=== PATIENT | male | born 1995 | race Two or more races ===

== ENCOUNTER 2022-12-09 06:45 | Emergency (ER) | payer OTHER ==
[~2022-12-09] VITALS: Ht 175.3 cm; Wt 64.9 kg
== END 2022-12-09 07:41 | disposition home or self-care (01) ==
LOC: ER 06:45
DX: J06.9 Acute upper respiratory infection, unspecified (principal)

== ENCOUNTER 2023-02-22 00:32 | Emergency (ER) | payer OTHER ==
[~2023-02-22] VITALS: Ht 175.3 cm; Wt 68.0 kg
[2023-02-22] MEDS ORDERED: MEDROL8 MG PO (02:14)
[2023-02-22] MEDS ORDERED: BENADRYL25 MG PO (02:14)
[2023-02-22] MEDS ORDERED: PEPCID AC20 MG PO (02:14)
== END 2023-02-22 02:17 ==
LOC: ER 00:32
DX: R21 Rash and other nonspecific skin eruption (principal); T78.40XA Allergy, unspecified, initial encounter; Z91.013 Allergy to seafood

== ENCOUNTER 2023-04-02 05:50 | Emergency (ER) | payer OTHER ==
[~2023-04-02] VITALS: Ht 175.3 cm; Wt 68.0 kg
[~2023-04-02 05:50] MED LIST: BENADRYL25 MG PO; MEDROL8 MG PO; PEPCID AC20 MG PO
== END 2023-04-02 11:22 | disposition home or self-care (01) ==
LOC: ER
DX: R51.9 Headache, unspecified (principal); Z91.013 Allergy to seafood

== ENCOUNTER 2023-04-26 19:26 | Emergency (ER) | payer OTHER ==
[~2023-04-26] VITALS: Ht 175.3 cm; Wt 67.6 kg
[2023-04-26] MEDS ORDERED: ZYRTEC10 M3 PO (21:31)
== END 2023-04-26 22:22 | disposition home or self-care (01) ==
LOC: ER 19:26
DX: R09.81 Nasal congestion (principal); Z20.822 Contact with and (suspected) exposure to COVID-19

== ENCOUNTER 2023-07-09 16:00 | Emergency (ER) | payer OTHER ==
[~2023-07-09] VITALS: Ht 175.3 cm; Wt 68.9 kg
[~2023-07-09 16:00] MED LIST changes: +ZYRTEC10 M3 PO
[2023-07-09] MEDS ORDERED: HYOSCYAMINE SULFATE 0.125 MG TAB.SUBL SL ONE (17:00)
[2023-07-09] MEDS ORDERED: DEXAMETHASONE SODIUM PHOSPHATE 4 MG/ML VIAL IV ONE (17:00)
[2023-07-09] MEDS ORDERED: FAMOTIDINE/PF 20 MG/2 ML VIAL IV PUSH ONE (17:00)
[2023-07-09 17:28] LABS: HEMATOCRIT 46.4 % (39.0-48.0); HEMOGLOBIN 16.2 g/dL (13-16.00); MEAN CELL VOLUME 85.9 fL (80.0-100.00); PLATELET COUNT 324 K/uL (150-450); RED CELL DISTRIBUTION WIDTH 13.2 % (11.5-14.5)
[2023-07-09 19:50] LABS: ALBUMIN 4.4 gm/dL (3.4-5.0); BILIRUBIN TOTAL 0.66 mg/dL (0.3-1.2); CALCIUM 9.6 mg/dL (8.5-10.1); CREATININE SERUM 0.79 mg/dL (0.70-1.30); GFR 118.56; GLOBULINA 3.9 G/DL (2.4-3.5); POTASSIUM 3.8 mEq/L (3.5-5.1); TOTAL PROTEIN 8.3 gm/dL (6.4-8.2)
== END 2023-07-09 21:20 | disposition home or self-care (01) ==
LOC: ER 16:00
PROVIDERS: General Practice
DX: B34.9 Viral infection, unspecified (principal); Z20.822 Contact with and (suspected) exposure to COVID-19; Z91.013 Allergy to seafood